=== PATIENT | female | born 1990 | race Caucasian/White ===

== ENCOUNTER 2018-04-06 20:57 | Emergency (ER) | payer OTHER ==
[~2018-04-06] VITALS: Ht 175.3 cm; Wt 131.5 kg
== END 2018-04-06 21:47 | disposition home or self-care (01) ==
LOC: ER 20:57
DX: S90.871A Other superficial bite of right foot, initial encounter (principal); W59.11XA Bitten by nonvenomous snake, initial encounter; Y93.89 Activity, other specified; Y92.89 Other specified places as the place of occurrence of the external cause; Y99.8 Other external cause status